=== PATIENT | female | born 1960 | race African-American/Black ===

== ENCOUNTER 2018-01-19 14:33 | Inpatient (IN) | payer OTHER ==
[2018-01-19 16:44] VITALS: BMI 20.5
[2018-01-19] MEDS ORDERED: IBUPROFEN 400 MG TABLET (FP) PO PRN (17:01)
[2018-01-19] MEDS ORDERED: NICOTINE POLACRILEX 2 MG GUM BC PRN (17:01)
[2018-01-19] MEDS ORDERED: MENTHOL/PHENOL 1 EACH UD MM PRN (17:01)
[2018-01-19] MEDS ORDERED: MAGNESIUM CITRATE 300 ML BOTTLE PO PRN (17:01)
[2018-01-19] MEDS ORDERED: guaiFENesin/D-METHORPHAN HB 10 ML UNIT-DOSE CUPS PO PRN (17:01)
[2018-01-19] MEDS ORDERED: LOPERAMIDE HCL 2 MG CAPSULE PO PRN (17:01)
[2018-01-19] MEDS ORDERED: P-EPHED 60MG/TRIPROLIDI 2.5MG TABLET PO PRN (17:01)
[2018-01-19] MEDS ORDERED: ACETAMINOPHEN 325 MG TABLET (FP) PO PRN (17:01)
[2018-01-19] MEDS ORDERED: MAGNESIUM HYDROX 2400MG/30ML ORAL SUSPENSION 30 ML CUP PO PRN (17:01)
--- NOTE | 2018-01-19 17:11 | HP ---
Admission [facility] Chief Complaint: "I am here for rehab, my drinking is getting out of hand " Allergies/Adverse Reactions: Allergies Allergy/AdvReac Type Severity Reaction Status Date / Time No Known Allergies Allergy Verified 01/19/18 17:00 History of Present Illness: 57 yo female with hx of nicotine and alcohol dependence presents today for rehab after completing detox at [place]. PMHX: HTN, Mitral Valve repair, unsteady gait. Patient denies any psychiatric hx. Denies suicidal / homicidal ideation or suicide attempts. Longest period of sobriety 21 years. Exam Limitations: No Limitations - Ebola screening Have you traveled outside of the country in the last 21 days: No Have you had contact with anyone from an Ebola affected area: No Have you been sick,other than usual withdrawal symptoms: No Do you have a fever: No - Review of Systems Constitutional: Loss of Appetite EENT: reports: Dental Problems (missing teeth), Other (wears glasses) Respiratory: reports: No Symptoms reported Cardiac: reports: See HPI GI: reports: Poor Appetite : reports: No Symptoms Reported Musculoskeletal: reports: See HPI, Other (uses cane for ambulation) Neuro: reports: No Symptoms reported Endocrine: reports: No Symptoms Reported Hematology: reports: Anemia (hx of blood transfusion) Psychiatric: reports: Mood/Affect Appropiate, Orientated x3 Patient History - Patient Medical History Hx Anemia: Yes Hx Asthma: No Hx Chronic Obstructive Pulmonary Disease (COPD): No Hx Cancer: No Hx Cardiac Disorders: Yes (mitral valve repalcement 2012) Hx Congestive Heart Failure: No Hx Hypertension: Yes Hx Hypercholesterolemia: No Hx Pacemaker: No HX Cerebrovascular Accident: No Hx Seizures: No Hx Dementia: No Hx Diabetes: No Hx Gastrointestinal Disorders: No Hx Liver Disease: No Hx Genitourinary Disorders: No Hx Sexually Transmitted Disorders: No Hx Renal Disease (ESRD): No Hx Thyroid Disease: No Hx Human Immunodeficiency Virus (HIV): No (unknown ) Hx Hepatitis C: No Hx Depression: No Hx Suicide Attempt: No Hx Bipolar Disorder: No Hx Schizophrenia: No - Patient Surgical History Past Surgical History: Yes Hx Neurologic Surgery: No Hx Cataract Extraction: No Hx Cardiac Surgery: No Hx Lung Surgery: No Hx Breast Surgery: Yes (left breast lump removal 1985) Hx Breast Biopsy: No Hx Abdominal Surgery: No Hx Appendectomy: No Hx Cholecystectomy: No Hx Genitourinary Surgery: No Hx Section: Yes (1995) Hx Orthopedic Surgery: No Hx Hysterectomy: No Other Surgical History: left overy removal 1985, blt ankle fracture 2013 & 2014 Anesthesia Reaction: No - PPD History Previous Implant?: No Documented Results: Negative w/o proof Implanted On Prior [facility] Admission?: Yes PPD to be Administered?: Yes - Reproductive History Patient is a Female of Child Bearing Age (11 -55 yrs old): No Patient : No - Smoking Cessation Smoking history: Current every day smoker Have you smoked in the past 12 months: Yes Aproximately how many cigarettes per day: 4 Hx Chewing Tobacco Use: No Initiated information on smoking cessation: Yes 'Breaking Loose' booklet given: 01/19/18 - Substance & Tx. History Hx Alcohol Use: Yes Hx Substance Use: Yes Substance Use Type: Alcohol Hx Substance Use Treatment: Yes ([facility] 01/13/18 - 01/19/18) - Substances Abused Alcohol Route: Oral Frequency: Daily Amount used: 1 PINT VODKA AND UP Age of first use: 18 Date of Last Use: 01/12/18 Family Disease History - Family Disease History Family Disease History: Diabetes: Mother (), Heart Disease: Father ( ), Mother, Other: Father, Mother Admission Physical Exam S - Vital Signs Vital Signs: Vital Signs - 24 hr 01/19/18 16:41 Temperature 98.2 F Pulse Rate 86 Respiratory 20 Rate Blood Pressure 145/82 - Physical General Appearance: Yes: No Apparent Distress, Appropriately Dressed, Thin, Anxious HEENTM: Yes: EOMI, Hearing grossly Normal, Normal ENT Inspection, Normocephalic , Normal Voice, JASON, Pharynx Normal, Tm's normal Respiratory: Yes: Chest Non-Tender, Lungs Clear, Normal Breath Sounds, No Respiratory Distress, No Accessory Muscle Use Breast: Yes: Breast Exam Deferred Cardiology: Yes: Within Normal Limits Abdominal: Yes: Normal Bowel Sounds, Non Tender, Flat, Soft Genitourinary: Yes: Within Normal Limits Back: Yes: Normal Inspection Musculoskeletal: Yes: full range of Motion, Back pain, Other (unsteady gait) Extremities: Yes: Normal Capillary Refill, Normal Inspection, Normal Range of Motion, Non-Tender 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 intact, Fully Oriented, Alert, Motor Strength 5/5, Normal Response Integumentary: Yes: Normal Color, Dry, Warm Lymphatic: Yes: Within Normal Limits - Diagnostic (1) Nicotine dependence Current Visit: Yes Status: Acute Qualifiers: Nicotine product type: cigarettes (2) Hypertension Current Visit: Yes Status: Chronic Qualifiers: Hypertension type: essential hypertension Qualified Code(s): I10 - Essential (primary) hypertension (3) Alcohol dependence Current Visit: Yes Status: Acute Qualifiers: Substance use status: uncomplicated Qualified Code(s): F10.20 - Alcohol dependence, uncomplicated (4) Use of cane as ambulatory aid Current Visit: Yes Status: Acute (5) Back pain Current Visit: Yes Status: Acute Qualifiers: Back pain location: low back pain Chronicity: acute Back pain laterality : bilateral Sciatica presence: without sciatica Qualified Code(s): M54.5 - Low back pain [facility] Breath Alcohol Content Breath Alcohol Content: 0 Urine Pregancy Test - Result Urine Test Results: Negative- NO Line Present Urine Drug Screen - Results Drug Screen Negative: No Urine Drug Screen Results: BZO-Benzodiazepines Inpatient Rehab Admission - Initial Determination Are CD services needed?: Yes Free of communicable disease: Yes Not in need of hospitalization: Yes - Rehab Admission Criteria Previous failed treatment: Yes Poor recovery environment: Yes Comorbidities: Yes Lacks judgement: Yes Patient is meeting Inpatient Rehab admission criteria:: Yes
[2018-01-19] MEDS ORDERED: MELATONIN 5 MG TABLETS PO PRN (22:00)
[2018-01-19 22:38] LABS: URINE APPEARANCE CLEAR; URINE BILIRUBIN NEGATIVE (<2.0 mg/dL); URINE COLOR LTYELLOW; URINE GLUCOSE (UA) NEGATIVE (NEGATIVE); URINE KETONE NEGATIVE (NEGATIVE); URINE LEUK ESTERASE NEGATIVE (NEGATIVE); URINE NITRITE NEGATIVE (NEGATIVE); URINE PROTEIN NEGATIVE (NEGATIVE); URINE UROBILINOGEN NEGATIVE mg/dL (0.2-1.0)
[2018-01-19] MEDS: LIDOCAINE PATCH REMOVAL MC SCH (22:50)
[2018-01-19] MEDS: THIAMINE HCL 100 MG TABLET (FP) PO SCH (22:50)
[2018-01-19] MEDS: LIDOCAINE 5% TOPICAL PATCH TP SCH (22:50)
[2018-01-20] MEDS ORDERED: amLODIPine BESYLATE 10 MG TABLET (FP) PO SCH (10:00)
[2018-01-20] MEDS: NICOTINE 14 MG/24 HOURS TOPICAL PATCH TD SCH (10:04)
[2018-01-20] MEDS: LIDOCAINE 5% TOPICAL PATCH TP SCH (10:04)
[2018-01-20] MEDS: PRENATAL VITAMINS W/ FOLIC ACID TABLET (FP) PO SCH (10:05)
--- NOTE | 2018-01-20 10:24 | EKG ---
Test Reason : Blood Pressure : / mmHG Vent. Rate : 088 BPM Atrial Rate : 088 BPM P-R Int : 186 ms QRS Dur : 094 ms QT Int : 404 ms P-R-T Axes : 058 016 078 degrees QTc Int : 488 ms NORMAL SINUS RHYTHM NONSPECIFIC T WAVE ABNORMALITY PROLONGED QT ABNORMAL ECG NO PREVIOUS ECGS AVAILABLE Confirmed by MD KALIA, ELIANE ([id number]) on 01/20/2018 10:24:07 AM Referred By: Confirmed By:ELIANE MOTTA MD
--- NOTE | 2018-01-20 10:24 | EKG ---
Test Reason : Blood Pressure : / mmHG Vent. Rate : 088 BPM Atrial Rate : 088 BPM P-R Int : 176 ms QRS Dur : 100 ms QT Int : 406 ms P-R-T Axes : 049 017 074 degrees QTc Int : 491 ms NORMAL SINUS RHYTHM POSSIBLE LEFT ATRIAL ENLARGEMENT NONSPECIFIC T WAVE ABNORMALITY PROLONGED QT ABNORMAL ECG WHEN COMPARED WITH ECG OF 19-JAN-2018 23:58, NO SIGNIFICANT CHANGE WAS FOUND Confirmed by MD KALIA, ELIANE ([id number]) on 01/20/2018 10:23:36 AM Referred By: Confirmed By:ELIANE MOTTA MD
--- NOTE | 2018-01-20 11:22 | HP ---
Psychiatrist Admission - Data Date of interview: 01/20/18 Admission source: [facility] Identifying data: This is the first 5N inpatient rehabilitation admission for this 57 year old single female unemployed and supported by [facility], residing in [facility]. Medical History: mitral valve repair in 2012, x 1 , left breast lump removal in 1985, left ovary removal 1985 and fracture of both ankle [id number] and 2014, smokes 4 cigarettes a day. Psychiatric History: Patient denies history of psychiatric treatment. Vital Signs: Vital Signs - 24 hr 01/19/18 01/19/18 01/20/18 16:41 23:04 00:30 Temperature 98.2 F 98 F Pulse Rate 86 109 H Respiratory 20 16 17 Rate Blood Pressure 145/82 148/75 01/20/18 01/20/18 01/20/18 03:30 07:10 09:39 Temperature 97.4 F L Pulse Rate 98 H 94 H Respiratory 18 18 Rate Blood Pressure 146/83 111/77 Allergies/Adverse Reactions: Allergies Allergy/AdvReac Type Severity Reaction Status Date / Time No Known Allergies Allergy Verified 01/19/18 17:00 Date of last physical exam: 01/19/18 Concur with the findings of this exam: Yes - Substance Abuse/Tx History Hx Alcohol Use: Yes (vadka 1pint to liter) Hx Substance Use: No Hx Substance Use Treatment: Yes (in [place] 3 years ago) Mental Status Exam - Mental Status Exam Alert and Oriented to: Time, Place, Person Cognitive Function: Good Patient Appearance: Well Groomed Mood: Hopeful Affect: Appropriate, Mood Congruent Patient Behavior: Appropriate, Cooperative Speech Pattern: Clear, Appropriate Voice Loudness: Normal Thought Process: Intact, Goal Oriented Thought Disorder: Not Present Hallucinations: Denies Suicidal Ideation: Denies Homicidal Ideation: Denies Insight/Judgement: Fair Appetite: Good Muscle strength/Tone: Normal Gait/Station: Other (walking with a cane) Psychiatric Findings - Problem List ([place] 1, 2,3) (1) Alcohol dependence Current Visit: Yes Status: Acute Qualifiers: Substance use status: uncomplicated Qualified Code(s): F10.20 - Alcohol dependence, uncomplicated (2) Back pain Current Visit: Yes Status: Acute Qualifiers: Back pain location: low back pain Chronicity: acute Back pain laterality : bilateral Sciatica presence: without sciatica Qualified Code(s): M54.5 - Low back pain (3) Nicotine dependence Current Visit: Yes Status: Acute Qualifiers: Nicotine product type: cigarettes (4) Use of cane as ambulatory aid Current Visit: Yes Status: Acute (5) Hypertension Current Visit: Yes Status: Chronic Qualifiers: Hypertension type: essential hypertension Qualified Code(s): I10 - Essential (primary) hypertension - Initial Treatment Plan Initial Treatment Plan: Will monitor progress as needed.
[2018-01-20 14:33] LABS: HEMATOCRIT 28.3 % (32.4-45.2); HEMOGLOBIN 8.8 GM/dL (10.7-15.3); MCH 29.5 pg (25.7-33.7); MCHC 31.1 g/dl (32.0-36.0); MEAN PLT VOLUME 9.1 fl (7.5-11.1); PLATELET COUNT 296 K/MM3 (134-434); RBC 2.98 M/mm3 (3.60-5.2); RDW 24.2 % (11.6-15.6); WHITE BLOOD COUNT 4.3 K/mm3 (4.0-10.0)
[2018-01-20 14:54] LABS: CHLORIDE 106 mmol/L (98-107); SODIUM 143 mmol/L (136-145)
[2018-01-20 15:00] LABS: ALBUMIN 4.1 g/dl (3.4-5.0); ALK PHOS 75 U/L (45-117); ANION GAP 10 (8-16); BILIRUBIN,TOTAL 0.3 mg/dL (0.2-1.0); BLOOD UREA NITROGEN 16 mg/dL (7-18); CALCIUM 9.2 mg/dL (8.5-10.1); CO2 27 mmol/L (21-32); CREATININE 0.7 mg/dL (0.55-1.02); GLUCOSE,RANDOM 167 mg/dL (74-106); SGOT/AST 32 U/L (15-37); SGPT/ALT 25 U/L (12-78); TOT PROT 7.1 g/dl (6.4-8.2)
[2018-01-20] MEDS: THIAMINE HCL 100 MG TABLET (FP) PO SCH (21:33)
[2018-01-20] MEDS: LIDOCAINE PATCH REMOVAL MC SCH (21:33)
[2018-01-21] MEDS: amLODIPine BESYLATE 10 MG TABLET (FP) PO SCH (06:41)
[2018-01-21] MEDS: PRENATAL VITAMINS W/ FOLIC ACID TABLET (FP) PO SCH (09:54)
[2018-01-21] MEDS: LIDOCAINE 5% TOPICAL PATCH TP SCH (09:55)
[2018-01-21] MEDS: NICOTINE 14 MG/24 HOURS TOPICAL PATCH TD SCH (09:55)
--- NOTE | 2018-01-21 14:30 | PN ---
[facility] Progress Note Note: CBC reviewed. Hgb 8.6 , HCT 28.3. Will repeat CBC on 01/23/18. Continue to monitor clinically.
[2018-01-21] MEDS: THIAMINE HCL 100 MG TABLET (FP) PO SCH (21:11)
[2018-01-21] MEDS: LIDOCAINE PATCH REMOVAL MC SCH (21:12)
[2018-01-22] MEDS: amLODIPine BESYLATE 10 MG TABLET (FP) PO SCH (06:14)
[2018-01-22] MEDS: LIDOCAINE 5% TOPICAL PATCH TP SCH (09:48)
[2018-01-22] MEDS: PRENATAL VITAMINS W/ FOLIC ACID TABLET (FP) PO SCH (09:48)
[2018-01-22] MEDS: NICOTINE 14 MG/24 HOURS TOPICAL PATCH TD SCH (09:48)
[2018-01-22] MEDS: THIAMINE HCL 100 MG TABLET (FP) PO SCH (21:15)
[2018-01-22] MEDS: LIDOCAINE PATCH REMOVAL MC SCH (21:16)
[2018-01-23] MEDS: amLODIPine BESYLATE 10 MG TABLET (FP) PO SCH (06:15)
[2018-01-23 10:15] LABS: BASO % 1.6 % (0-2.0); EOS % 5.5 % (0-4.5); HEMATOCRIT 29.9 % (32.4-45.2); HEMOGLOBIN 9.8 GM/dL (10.7-15.3); LYMPH % 28.4 % (8-40); MCHC 32.8 g/dl (32.0-36.0); MEAN CELL VOLUME 94.4 fl (80-96); MEAN PLT VOLUME 8.8 fl (7.5-11.1); MONO % 14.8 % (3.8-10.2); NEUT % 49.7 % (42.8-82.8); PLATELET COUNT 253 K/MM3 (134-434); RBC 3.17 M/mm3 (3.60-5.2); WHITE BLOOD COUNT 4.9 K/mm3 (4.0-10.0)
[2018-01-23] MEDS: PRENATAL VITAMINS W/ FOLIC ACID TABLET (FP) PO SCH (10:17)
[2018-01-23] MEDS: NICOTINE 14 MG/24 HOURS TOPICAL PATCH TD SCH (10:17)
[2018-01-23] MEDS: LIDOCAINE 5% TOPICAL PATCH TP SCH (10:18)
--- NOTE | 2018-01-23 13:09 | PN ---
[facility] Progress Note Note: CBC reviewed. Hgb 9.8, HCT 29.9. Improved since last results on 01/20/18. Continue to monitor.
[2018-01-23] MEDS: THIAMINE HCL 100 MG TABLET (FP) PO SCH (21:07)
[2018-01-23] MEDS: LIDOCAINE PATCH REMOVAL MC SCH (21:08)
[2018-01-24] MEDS: amLODIPine BESYLATE 10 MG TABLET (FP) PO SCH (06:30)
[2018-01-24] MEDS: PRENATAL VITAMINS W/ FOLIC ACID TABLET (FP) PO SCH (09:36)
[2018-01-24] MEDS: LIDOCAINE 5% TOPICAL PATCH TP SCH (09:36)
[2018-01-24] MEDS: NICOTINE 14 MG/24 HOURS TOPICAL PATCH TD SCH (09:36)
[2018-01-24] MEDS: THIAMINE HCL 100 MG TABLET (FP) PO SCH (21:12)
[2018-01-24] MEDS: LIDOCAINE PATCH REMOVAL MC SCH (21:12)
[2018-01-25] MEDS: amLODIPine BESYLATE 10 MG TABLET (FP) PO SCH (06:31)
[2018-01-25] MEDS: PRENATAL VITAMINS W/ FOLIC ACID TABLET (FP) PO SCH (09:33)
[2018-01-25] MEDS: LIDOCAINE 5% TOPICAL PATCH TP SCH (09:34)
[2018-01-25] MEDS: NICOTINE 14 MG/24 HOURS TOPICAL PATCH TD SCH (09:34)
[2018-01-25] MEDS: THIAMINE HCL 100 MG TABLET (FP) PO SCH (21:18)
[2018-01-25] MEDS: LIDOCAINE PATCH REMOVAL MC SCH (21:19)
[2018-01-26] MEDS: amLODIPine BESYLATE 10 MG TABLET (FP) PO SCH (06:46)
[2018-01-26] MEDS: PRENATAL VITAMINS W/ FOLIC ACID TABLET (FP) PO SCH (09:46)
[2018-01-26] MEDS: LIDOCAINE 5% TOPICAL PATCH TP SCH (09:46)
[2018-01-26] MEDS: NICOTINE 14 MG/24 HOURS TOPICAL PATCH TD SCH (09:46)
--- NOTE | 2018-01-26 12:27 | PN ---
[facility] Progress Note Note: Patient present with nasal congestion. Has not tried PRN order of P Ephed. 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 Continue to monitor clinically.
[2018-01-26] MEDS: THIAMINE HCL 100 MG TABLET (FP) PO SCH (21:03)
[2018-01-26] MEDS: LIDOCAINE PATCH REMOVAL MC SCH (21:42)
--- NOTE | 2018-01-26 22:04 | PN ---
[facility] Progress Note Note: PER PATIENTS REQUEST CLARITIAN DC START ACTIFED
[2018-01-26] MEDS: P-EPHED 60MG/TRIPROLIDI 2.5MG TABLET PO PRN (22:33)
[2018-01-27] MEDS: amLODIPine BESYLATE 10 MG TABLET (FP) PO SCH (06:21)
[2018-01-27] MEDS: NICOTINE 14 MG/24 HOURS TOPICAL PATCH TD SCH (09:55)
[2018-01-27] MEDS: PRENATAL VITAMINS W/ FOLIC ACID TABLET (FP) PO SCH (09:55)
[2018-01-27] MEDS: LIDOCAINE 5% TOPICAL PATCH TP SCH (09:56)
[2018-01-27] MEDS ORDERED: LORATADINE 10 MG TABLET PO SCH (10:00)
[2018-01-27] MEDS: THIAMINE HCL 100 MG TABLET (FP) PO SCH (21:03)
[2018-01-27] MEDS: LIDOCAINE PATCH REMOVAL MC SCH (21:06)
[2018-01-27] MEDS: P-EPHED 60MG/TRIPROLIDI 2.5MG TABLET PO PRN (21:06)
[2018-01-28] MEDS: amLODIPine BESYLATE 10 MG TABLET (FP) PO SCH (06:23)
[2018-01-28] MEDS: LIDOCAINE 5% TOPICAL PATCH TP SCH (09:47)
[2018-01-28] MEDS: NICOTINE 14 MG/24 HOURS TOPICAL PATCH TD SCH (09:48)
[2018-01-28] MEDS: PRENATAL VITAMINS W/ FOLIC ACID TABLET (FP) PO SCH (09:48)
[2018-01-28] MEDS: THIAMINE HCL 100 MG TABLET (FP) PO SCH (21:12)
[2018-01-28] MEDS: P-EPHED 60MG/TRIPROLIDI 2.5MG TABLET PO PRN (21:13)
[2018-01-28] MEDS: LIDOCAINE PATCH REMOVAL MC SCH (21:13)
[2018-01-29] MEDS: amLODIPine BESYLATE 10 MG TABLET (FP) PO SCH (06:22)
[2018-01-29] MEDS: NICOTINE 14 MG/24 HOURS TOPICAL PATCH TD SCH (10:04)
[2018-01-29] MEDS: LIDOCAINE 5% TOPICAL PATCH TP SCH (10:04)
[2018-01-29] MEDS: PRENATAL VITAMINS W/ FOLIC ACID TABLET (FP) PO SCH (10:04)
[2018-01-29] MEDS: THIAMINE HCL 100 MG TABLET (FP) PO SCH (21:13)
[2018-01-29] MEDS: P-EPHED 60MG/TRIPROLIDI 2.5MG TABLET PO PRN (21:13)
[2018-01-29] MEDS: LIDOCAINE PATCH REMOVAL MC SCH (21:13)
[2018-01-30] MEDS: amLODIPine BESYLATE 10 MG TABLET (FP) PO SCH (07:25)
[2018-01-30] MEDS: PRENATAL VITAMINS W/ FOLIC ACID TABLET (FP) PO SCH (10:31)
[2018-01-30] MEDS: NICOTINE 14 MG/24 HOURS TOPICAL PATCH TD SCH (10:31)
[2018-01-30] MEDS: LIDOCAINE 5% TOPICAL PATCH TP SCH (10:31)
[2018-01-30] MEDS: LIDOCAINE PATCH REMOVAL MC SCH (21:18)
[2018-01-30] MEDS: THIAMINE HCL 100 MG TABLET (FP) PO SCH (21:18)
[2018-01-30] MEDS: P-EPHED 60MG/TRIPROLIDI 2.5MG TABLET PO PRN (21:19)
[2018-01-31] MEDS: amLODIPine BESYLATE 10 MG TABLET (FP) PO SCH (06:39)
[2018-01-31] MEDS: NICOTINE 14 MG/24 HOURS TOPICAL PATCH TD SCH (10:13)
[2018-01-31] MEDS: LIDOCAINE 5% TOPICAL PATCH TP SCH (10:13)
[2018-01-31] MEDS: PRENATAL VITAMINS W/ FOLIC ACID TABLET (FP) PO SCH (10:14)
[2018-01-31] MEDS: LIDOCAINE PATCH REMOVAL MC SCH (21:06)
[2018-01-31] MEDS: THIAMINE HCL 100 MG TABLET (FP) PO SCH (21:06)
[2018-01-31] MEDS: P-EPHED 60MG/TRIPROLIDI 2.5MG TABLET PO PRN (21:07)
[2018-02-01] MEDS: amLODIPine BESYLATE 10 MG TABLET (FP) PO SCH (06:50)
[2018-02-01] MEDS: LIDOCAINE 5% TOPICAL PATCH TP SCH (10:10)
[2018-02-01] MEDS: PRENATAL VITAMINS W/ FOLIC ACID TABLET (FP) PO SCH (10:11)
[2018-02-01] MEDS: NICOTINE 14 MG/24 HOURS TOPICAL PATCH TD SCH (10:11)
[2018-02-01] MEDS: LIDOCAINE PATCH REMOVAL MC SCH (21:06)
[2018-02-01] MEDS: THIAMINE HCL 100 MG TABLET (FP) PO SCH (21:06)
[2018-02-01] MEDS: P-EPHED 60MG/TRIPROLIDI 2.5MG TABLET PO PRN (21:07)
[2018-02-02] MEDS: amLODIPine BESYLATE 10 MG TABLET (FP) PO SCH (06:25)
[2018-02-02] MEDS: NICOTINE 14 MG/24 HOURS TOPICAL PATCH TD SCH (09:44)
[2018-02-02] MEDS: LIDOCAINE 5% TOPICAL PATCH TP SCH (09:45)
[2018-02-02] MEDS: PRENATAL VITAMINS W/ FOLIC ACID TABLET (FP) PO SCH (09:45)
[2018-02-02] MEDS: THIAMINE HCL 100 MG TABLET (FP) PO SCH (21:14)
[2018-02-02] MEDS: P-EPHED 60MG/TRIPROLIDI 2.5MG TABLET PO PRN (21:14)
[2018-02-02] MEDS: LIDOCAINE PATCH REMOVAL MC SCH (23:51)
[2018-02-03] MEDS: amLODIPine BESYLATE 10 MG TABLET (FP) PO SCH (06:26)
[2018-02-03] MEDS: NICOTINE 14 MG/24 HOURS TOPICAL PATCH TD SCH (10:02)
[2018-02-03] MEDS: PRENATAL VITAMINS W/ FOLIC ACID TABLET (FP) PO SCH (10:02)
[2018-02-03] MEDS: LIDOCAINE 5% TOPICAL PATCH TP SCH (10:02)
[2018-02-03] MEDS: THIAMINE HCL 100 MG TABLET (FP) PO SCH (21:18)
[2018-02-03] MEDS: P-EPHED 60MG/TRIPROLIDI 2.5MG TABLET PO PRN (21:19)
[2018-02-03] MEDS: LIDOCAINE PATCH REMOVAL MC SCH (21:19)
[2018-02-04] MEDS: amLODIPine BESYLATE 10 MG TABLET (FP) PO SCH (06:16)
[2018-02-04] MEDS: LIDOCAINE 5% TOPICAL PATCH TP SCH (09:47)
[2018-02-04] MEDS: NICOTINE 14 MG/24 HOURS TOPICAL PATCH TD SCH (09:47)
[2018-02-04] MEDS: PRENATAL VITAMINS W/ FOLIC ACID TABLET (FP) PO SCH (09:47)
[2018-02-04] MEDS: THIAMINE HCL 100 MG TABLET (FP) PO SCH (21:15)
[2018-02-04] MEDS: P-EPHED 60MG/TRIPROLIDI 2.5MG TABLET PO PRN (21:16)
[2018-02-04] MEDS: LIDOCAINE PATCH REMOVAL MC SCH (21:16)
[2018-02-05] MEDS: amLODIPine BESYLATE 10 MG TABLET (FP) PO SCH (06:25)
[2018-02-05] MEDS: PRENATAL VITAMINS W/ FOLIC ACID TABLET (FP) PO SCH (09:59)
[2018-02-05] MEDS: LIDOCAINE 5% TOPICAL PATCH TP SCH (10:00)
[2018-02-05] MEDS: NICOTINE 14 MG/24 HOURS TOPICAL PATCH TD SCH (10:00)
[2018-02-05] MEDS: MAG HYDROX/AL HYDROX/SIMETH 30 ML UNIT-DOSE CUP PO PRN (14:44)
[2018-02-05] MEDS: P-EPHED 60MG/TRIPROLIDI 2.5MG TABLET PO PRN (21:17)
[2018-02-05] MEDS: LIDOCAINE PATCH REMOVAL MC SCH (21:17)
[2018-02-05] MEDS: THIAMINE HCL 100 MG TABLET (FP) PO SCH (21:17)
[2018-02-06] MEDS: amLODIPine BESYLATE 10 MG TABLET (FP) PO SCH (06:21)
[2018-02-06] MEDS: PRENATAL VITAMINS W/ FOLIC ACID TABLET (FP) PO SCH (10:19)
[2018-02-06] MEDS: LIDOCAINE 5% TOPICAL PATCH TP SCH (10:20)
[2018-02-06] MEDS: NICOTINE 14 MG/24 HOURS TOPICAL PATCH TD SCH (10:20)
[2018-02-06] MEDS: THIAMINE HCL 100 MG TABLET (FP) PO SCH (22:19)
[2018-02-06] MEDS: LIDOCAINE PATCH REMOVAL MC SCH (22:21)
[2018-02-06] MEDS: P-EPHED 60MG/TRIPROLIDI 2.5MG TABLET PO PRN (23:09)
[2018-02-07] MEDS: amLODIPine BESYLATE 10 MG TABLET (FP) PO SCH (06:29)
[2018-02-07] MEDS: P-EPHED 60MG/TRIPROLIDI 2.5MG TABLET PO PRN ×2 (07:27→21:23)
[2018-02-07] MEDS: LIDOCAINE 5% TOPICAL PATCH TP SCH (09:54)
[2018-02-07] MEDS: PRENATAL VITAMINS W/ FOLIC ACID TABLET (FP) PO SCH (09:54)
[2018-02-07] MEDS: NICOTINE 14 MG/24 HOURS TOPICAL PATCH TD SCH (09:54)
[2018-02-07] MEDS ORDERED: PT OWN MED DRAWER 7, Y5N ONE (16:26)
[2018-02-07] MEDS: MAG HYDROX/AL HYDROX/SIMETH 30 ML UNIT-DOSE CUP PO PRN (17:50)
[2018-02-07] MEDS: LIDOCAINE PATCH REMOVAL MC SCH (21:23)
[2018-02-07] MEDS: THIAMINE HCL 100 MG TABLET (FP) PO SCH (21:23)
[2018-02-08] MEDS: amLODIPine BESYLATE 10 MG TABLET (FP) PO SCH (06:24)
[2018-02-08] MEDS: PRENATAL VITAMINS W/ FOLIC ACID TABLET (FP) PO SCH (09:54)
[2018-02-08] MEDS: NICOTINE 14 MG/24 HOURS TOPICAL PATCH TD SCH (09:54)
[2018-02-08] MEDS: LIDOCAINE 5% TOPICAL PATCH TP SCH (09:55)
[2018-02-08] MEDS: PANTOPRAZOLE 40 MG TABLET (FP) PO SCH (12:12)
[2018-02-08] MEDS: THIAMINE HCL 100 MG TABLET (FP) PO SCH (21:16)
[2018-02-08] MEDS: LIDOCAINE PATCH REMOVAL MC SCH (21:16)
[2018-02-09] MEDS: amLODIPine BESYLATE 10 MG TABLET (FP) PO SCH (06:06)
[2018-02-09] MEDS: NICOTINE 14 MG/24 HOURS TOPICAL PATCH TD SCH (09:56)
[2018-02-09] MEDS: PANTOPRAZOLE 40 MG TABLET (FP) PO SCH (09:57)
[2018-02-09] MEDS: PRENATAL VITAMINS W/ FOLIC ACID TABLET (FP) PO SCH (09:57)
[2018-02-09] MEDS: LIDOCAINE 5% TOPICAL PATCH TP SCH (09:58)
[2018-02-09] MEDS: THIAMINE HCL 100 MG TABLET (FP) PO SCH (21:14)
[2018-02-09] MEDS: LIDOCAINE PATCH REMOVAL MC SCH (21:14)
[2018-02-09] MEDS: P-EPHED 60MG/TRIPROLIDI 2.5MG TABLET PO PRN (21:14)
[2018-02-10] MEDS: amLODIPine BESYLATE 10 MG TABLET (FP) PO SCH (06:11)
[2018-02-10] MEDS: LIDOCAINE 5% TOPICAL PATCH TP SCH (10:14)
[2018-02-10] MEDS: NICOTINE 14 MG/24 HOURS TOPICAL PATCH TD SCH (10:14)
[2018-02-10] MEDS: PRENATAL VITAMINS W/ FOLIC ACID TABLET (FP) PO SCH (10:15)
[2018-02-10] MEDS: PANTOPRAZOLE 40 MG TABLET (FP) PO SCH (10:15)
[2018-02-10] MEDS: LIDOCAINE PATCH REMOVAL MC SCH (21:08)
[2018-02-10] MEDS: THIAMINE HCL 100 MG TABLET (FP) PO SCH (21:08)
[2018-02-11] MEDS: amLODIPine BESYLATE 10 MG TABLET (FP) PO SCH (06:16)
[2018-02-11] MEDS: NICOTINE 14 MG/24 HOURS TOPICAL PATCH TD SCH (09:55)
[2018-02-11] MEDS: LIDOCAINE 5% TOPICAL PATCH TP SCH (09:55)
[2018-02-11] MEDS: PRENATAL VITAMINS W/ FOLIC ACID TABLET (FP) PO SCH (09:55)
[2018-02-11] MEDS: PANTOPRAZOLE 40 MG TABLET (FP) PO SCH (09:55)
[2018-02-11] MEDS: THIAMINE HCL 100 MG TABLET (FP) PO SCH (21:15)
[2018-02-11] MEDS: P-EPHED 60MG/TRIPROLIDI 2.5MG TABLET PO PRN (21:15)
[2018-02-11] MEDS: LIDOCAINE PATCH REMOVAL MC SCH (21:15)
[2018-02-12] MEDS: amLODIPine BESYLATE 10 MG TABLET (FP) PO SCH (06:31)
[2018-02-12] MEDS: NICOTINE 14 MG/24 HOURS TOPICAL PATCH TD SCH (09:52)
[2018-02-12] MEDS: LIDOCAINE 5% TOPICAL PATCH TP SCH (09:53)
[2018-02-12] MEDS: PANTOPRAZOLE 40 MG TABLET (FP) PO SCH (09:53)
[2018-02-12] MEDS: PRENATAL VITAMINS W/ FOLIC ACID TABLET (FP) PO SCH (09:53)
[2018-02-12] MEDS: P-EPHED 60MG/TRIPROLIDI 2.5MG TABLET PO PRN (21:14)
[2018-02-12] MEDS: LIDOCAINE PATCH REMOVAL MC SCH (21:14)
[2018-02-12] MEDS: THIAMINE HCL 100 MG TABLET (FP) PO SCH (21:14)
[2018-02-13] MEDS: amLODIPine BESYLATE 10 MG TABLET (FP) PO SCH (06:07)
[2018-02-13] MEDS: LIDOCAINE 5% TOPICAL PATCH TP SCH (10:15)
[2018-02-13] MEDS: PANTOPRAZOLE 40 MG TABLET (FP) PO SCH (10:15)
[2018-02-13] MEDS: NICOTINE 14 MG/24 HOURS TOPICAL PATCH TD SCH (10:15)
[2018-02-13] MEDS: PRENATAL VITAMINS W/ FOLIC ACID TABLET (FP) PO SCH (10:15)
[2018-02-13] MEDS ORDERED: PT OWN MED DRAWER 7, Y5N ONE (11:06)
[2018-02-13] MEDS: THIAMINE HCL 100 MG TABLET (FP) PO SCH (21:19)
[2018-02-13] MEDS: LIDOCAINE PATCH REMOVAL MC SCH (21:19)
[2018-02-13] MEDS: P-EPHED 60MG/TRIPROLIDI 2.5MG TABLET PO PRN (21:19)
[2018-02-14] MEDS: amLODIPine BESYLATE 10 MG TABLET (FP) PO SCH (06:44)
[2018-02-14] MEDS: LIDOCAINE 5% TOPICAL PATCH TP SCH (09:38)
[2018-02-14] MEDS: PRENATAL VITAMINS W/ FOLIC ACID TABLET (FP) PO SCH (09:39)
[2018-02-14] MEDS: PANTOPRAZOLE 40 MG TABLET (FP) PO SCH (09:39)
[2018-02-14] MEDS: NICOTINE 14 MG/24 HOURS TOPICAL PATCH TD SCH (09:39)
[2018-02-14] MEDS: THIAMINE HCL 100 MG TABLET (FP) PO SCH (21:32)
[2018-02-14] MEDS: LIDOCAINE PATCH REMOVAL MC SCH (21:33)
[2018-02-15] MEDS: amLODIPine BESYLATE 10 MG TABLET (FP) PO SCH (06:35)
[2018-02-15 07:21] VITALS: TEMP 97.9
[2018-02-15] MEDS: LIDOCAINE 5% TOPICAL PATCH TP SCH (09:50)
[2018-02-15] MEDS: NICOTINE 14 MG/24 HOURS TOPICAL PATCH TD SCH (09:51)
[2018-02-15] MEDS: PANTOPRAZOLE 40 MG TABLET (FP) PO SCH (09:51)
[2018-02-15] MEDS: PRENATAL VITAMINS W/ FOLIC ACID TABLET (FP) PO SCH (09:51)
[2018-02-15] MEDS: P-EPHED 60MG/TRIPROLIDI 2.5MG TABLET PO PRN (15:05)
[2018-02-15] MEDS: THIAMINE HCL 100 MG TABLET (FP) PO SCH (21:08)
[2018-02-15] MEDS: LIDOCAINE PATCH REMOVAL MC SCH (21:08)
[2018-02-16] MEDS: amLODIPine BESYLATE 10 MG TABLET (FP) PO SCH (06:18)
[2018-02-16 09:41] VITALS: BP 100/68; PULSE 103
--- NOTE | 2018-02-16 09:46 | PN ---
Psychiatric Progress Note Vital Signs: Vital Signs Period Temp Pulse Resp BP Sys/Stephens Pulse Ox Last 24 Hr 97.9 F 92-103 -18 100-135/68-72 Date of Session: 02/16/18 Chief Complaint:: Discharge visit HPI: Patient addressed Alcohol dependence. ROS: Significant for HTN,Low back pain. Current Medications: Active Medications Generic Name Dose Route Start Last Admin Trade Name Freq PRN Reason Stop Dose Admin Acetaminophen 650 mg 01/19/18 17:01 Tylenol - PO Q4H PRN FEVER Al Hydroxide/Mg Hydroxide 30 ml 01/19/18 17:01 02/07/18 17:50 Mylanta Oral Suspension - PO 30 ml Q6H PRN Administration DYSPEPSIA Amlodipine Besylate 10 mg 01/21/18 06:00 02/16/18 06:18 Norvasc - PO 10 mg DAILY@0600 SOFIE Administration Eucalyptus/Menthol/Phenol/Sorbitol 1 each 01/19/18 17:01 02/14/18 21:33 Cepastat Lozenge - MM 1 each Q4H PRN Administration SORE THROAT Guaifenesin 10 ml 01/19/18 17:01 Robitussin Dm - PO Q6H PRN COUGH Ibuprofen 400 mg 01/19/18 17:01 Motrin - PO Q6H PRN Pain level 4-6 Lidocaine 1 patch 01/19/18 18:45 02/15/18 09:50 Lidoderm Patch - TP Not Given DAILY SOFIE Loperamide HCl 4 mg 01/19/18 17:01 Imodium - PO Q6H PRN DIARRHEA Magnesium Citrate 300 ml 01/19/18 17:01 Citroma - PO Q48H PRN CONSTIPATION Magnesium Hydroxide 30 ml 01/19/18 17:01 Milk Of Magnesia - PO DAILY PRN CONSTIPATION Melatonin 5 mg 01/19/18 22:00 Melatonin PO HS PRN INSOMNIA Miscellaneous 1 each 01/19/18 22:00 02/15/18 21:08 Lidoderm Patch Removal MC 1 each DAILY@2200 SOFIE Administration Nicotine 14 mg 01/20/18 10:00 02/15/18 09:51 Nicoderm Patch - TD 14 mg DAILY SOFIE Administration Nicotine Polacrilex 2 mg 01/19/18 17:01 Nicorette Gum - BC Q2H PRN NICOTINE REPLACEMENT RX Pantoprazole Sodium 40 mg 02/08/18 11:45 02/15/18 09:51 Protonix - PO 40 mg DAILY SOFIE Administration Multivit/Folic Acid/Iron 1 tab 01/20/18 10:00 02/15/18 09:51 Vitamins (Sjr) - PO 1 tab DAILY SOFIE Administration Pseudoephedrine/Triprolidine 1 combo 01/26/18 22:03 02/15/18 15:05 Actifed - PO 1 combo Q6H PRN Administration NASAL CONGESTION Thiamine HCl 100 mg 01/19/18 22:00 02/15/18 21:08 Vitamin B1 - PO 100 mg HS SOFIE Administration Current Side Effect: No Lab tests ordered: No Lab tests reviewed: Yes Provider note:: Patient completed this program today.She has met her treatment goals and will continue to address her issues on outpatient basis.Patient identifies her issues .She focuses on insight gained on treatment changing attitude towards her follow up and outpatient appointments.Supportive therapy provided focusing on coping skills ,support utilization to maintain recovery. patient is stable for discarge today. Total face to face time:: 30 Mental Status Exam - Mental Status Exam Alert and Oriented to: Time, Place, Person Cognitive Function: Grossly Intact Patient Appearance: Well Groomed Mood: Euthymic Affect: Mood Congruent Patient Behavior: Appropriate, Cooperative Speech Pattern: Clear Voice Loudness: Normal Thought Process: Goal Oriented Thought Disorder: Not Present Hallucinations: Denies Suicidal Ideation: Denies Homicidal Ideation: Denies Insight/Judgement: Fair Sleep: Fair Appetite: Good Muscle strength/Tone: Normal Gait/Station: Normal Psychiatric Treatment Plan - Problem List (1) Alcohol dependence Qualifiers: Substance use status: uncomplicated Qualified Code(s): F10.20 - Alcohol dependence, uncomplicated (2) Back pain Qualifiers: Back pain location: low back pain Chronicity: acute Back pain laterality : bilateral Sciatica presence: without sciatica Qualified Code(s): M54.5 - Low back pain (3) Nicotine dependence Qualifiers: Nicotine product type: cigarettes (4) Hypertension Qualifiers: Hypertension type: essential hypertension Qualified Code(s): I10 - Essential (primary) hypertension
[2018-02-16] MEDS: PRENATAL VITAMINS W/ FOLIC ACID TABLET (FP) PO SCH (10:13)
[2018-02-16] MEDS: PANTOPRAZOLE 40 MG TABLET (FP) PO SCH (10:13)
[2018-02-16] MEDS: NICOTINE 14 MG/24 HOURS TOPICAL PATCH TD SCH (10:14)
[2018-02-16] MEDS: LIDOCAINE 5% TOPICAL PATCH TP SCH (10:15)
== END 2018-02-16 10:33 | disposition home or self-care (01) | DRG 895 ==
LOC: YASAS 14:33 → Y3E 18:15
PROVIDERS: ADMIT Psychiatry & Neurology Psychiatry; ATTEND Psychiatry & Neurology Psychiatry
PROC: HZ42ZZZ Group Counseling for Substance Abuse Treatment, Cognitive-Behavioral (ICD-10-PCS; principal; 2018-01-19)
DX: F10.20 Alcohol dependence, uncomplicated (principal); F17.210 Nicotine dependence, cigarettes, uncomplicated; I10 Essential (primary) hypertension; M54.5 Low back pain; R26.89 Other abnormalities of gait and mobility; Z99.89 Dependence on other enabling machines and devices
CPT/HCPCS: 36415; 80053; 81003; 82962; 85025; 85027; 86593; 87389; 93005; 93010